=== PATIENT | male | born 1965 | race Caucasian/White ===

== ENCOUNTER 2020-06-07 10:58 | Emergency (ER) | payer BC, SELFPAY ==
[2020-06-07 11:00] VITALS: BP 118/81; PULSE 87; RESP 17; TEMP 36.9; O2SAT 94; BMI 22.6
--- NOTE | 2020-06-07 11:01 | NURSING ---
NO OLD EKGS
[2020-06-07 11:11] VITALS: O2SAT 95
--- NOTE | 2020-06-07 11:21 | ED.RN ---
WHILE IV BEING PLACED THE PATIENT BECAME DIAPHORETIC, PULSE DROPPED TO 39, AND BP DOWN TO 66/50. PATIENT PLACED IN TRENDELENBURG POSITION AND COOL CLOTH GIVEN. HR NOW 73 AND BP 108/86. WILL CONTINUE TO MONITOR. NOTIFIED.
--- NOTE | 2020-06-07 11:35 | EKG12_ITS ---
Test Reason : PALPS REPEAT Blood Pressure : / mmHG Vent. Rate : 072 BPM Atrial Rate : 072 BPM P-R Int : 132 ms QRS Dur : 082 ms QT Int : 364 ms P-R-T Axes : 056 047 058 degrees QTc Int : 398 ms Normal sinus rhythm Normal ECG Confirmed by DELANEY DAVIS, MARCELINO ([id number]), video editor HALIE CANO ([id number]) on 06/09/2020 2:36:04 PM Referred By: HASEEB Confirmed By:NIMESH BALTAZAR MD
--- NOTE | 2020-06-07 11:35 | RAD_ITS ---
STUDY: X-RAY CHEST REASON FOR EXAM: Male, 54 years old. cp TECHNIQUE: Single AP portable view of the chest. COMPARISON: None. FINDINGS: The lungs are clear and expanded. There is no demonstrated pleural abnormality. Normal size heart. Normal mediastinum and essence. Normal visualized pulmonary arteries. Normal visualized aortic arch and descending thoracic aorta. Normal visualized thoracic spine. Normal visualized ribs, clavicles, and shoulders. There is no demonstrated abnormality of the visualized soft tissue structures of the upper abdomen. RAD/Chest 1 View (Portable) IMPRESSION: Normal x-ray examination of the chest. Electronically Signed: Janak Wilder MD at 12:40 EDT Tel , Service support ,
--- NOTE | 2020-06-07 11:36 | EKG12_ITS ---
Test Reason : PALP Blood Pressure : / mmHG Vent. Rate : 044 BPM Atrial Rate : 035 BPM P-R Int : 000 ms QRS Dur : 076 ms QT Int : 406 ms P-R-T Axes : 000 056 050 degrees QTc Int : 347 ms Marked sinus bradycardia with A-V dissociation and Junctional bradycardia with Sinus/atrial capture Abnormal ECG Confirmed by DELANEY DAVIS, MARCELINO ([id number]), acquisition editor HALIE CANO ([id number]) on 06/09/2020 2:36:25 PM Referred By: MATTY Confirmed By:NIMESH BALTAZAR MD
[2020-06-07] MEDS: 0.9% Normal Saline 1,000 ML 1000 ML IV (11:52)
[2020-06-07 12:29] LABS: Absolute Lymphocyte Count 1.97 X10^3/uL (0.83-4.51); Absolute Neutrophil Count 5.4 X10^3/uL (2.0-7.7); Basophil# 0.06 X10^3/uL; Basophil% 0.7 % (0-1); Eosinophil# 0.04 X10^3/uL; Eosinophils% 0.5 % (0-5); Hemoglobin 16.6 g/dL (13.0-16.5); Lymphocyte # 1.97 X10^3/ul (4.0); Lymphocyte % 24.3 % (19-41); Mean Corp Hgb Conc 34.6 g/dL (32-36); Mean Corpuscular Hgb 30.9 pg (27.0-32.0); Mean Corpuscular Volume 89.4 fL (80-94); Mean Platelet Vol. 9.5 fl (6.2-12.0); Monocyte# 0.55 X10^3/uL; Monocyte% 6.8 % (0-10); NRBC Flagged by Analyzer 0 % (0-5); Neutrophil # 5.44 X10^3/uL (2.7-7.7); Neutrophil % 67.2 % (47-70); Platelet Count 241 K/mm3 (150-450); RBC Distribution Width CV 12.9 % (11.6-14.6); RBC Distribution Width SD 41.8 fl (35.1-43.9); Red Blood Count 5.37 M/mm3 (4.6-6.2); White Blood Count 8.1 K/mm3 (4.4-11.0)
[2020-06-07 12:41] LABS: D-Dimer Quantitative (DVT/PE) 0.32 FEU/ug/m (0.27-0.49)
[2020-06-07 12:57] LABS: Anion Gap 6 (5-15); BUN 16 mg/dL (7-18); Calcium,Total 9.4 mg/dL (8.5-10.1); Chloride 103 mmol/L (98-107); Creatinine, Serum 1.14 mg/dL (0.70-1.30); EST Glomerular Filtration Rate 71 mL/min (>60); Est Glom Filt Rate - Afr Amer 86 mL/min (>60); Glucose 97 mg/dL (74-106); Potassium 3.9 mmol/L (3.5-5.1); Sodium Level 137 mmol/L (136-145)
[2020-06-07 13:44] VITALS: BP 126/88; PULSE 85; RESP 18; O2SAT 96
--- NOTE | 2020-06-07 13:58 | ED.DCSUM_ITS ---
History of Present Illness Chief Complaint: Palpitations Detail of Chief Complaint: Weird feeling in chest Informant: Patient Onset: Yesterday Current Severity: Mild Maximum Severity: Mild Narrative: Patient presents with a weird feeling in his chest and states he overall just does not feel quite right. He has a hard time explaining what he means with this. He denies actual chest pain or palpitations. He has not felt lightheaded or dizzy. He does not feel as if he is on a pass out. He denies any significant cardiac history. Past Medical History - Allergies and Home Meds Allergies/Adverse Reactions: Allergies Penicillins Allergy (Verified 06/07/20 10:59) FROM [facility] Primary Care Physician: Care Physician,No Primary [Primary Care Provider] - Past Medical History: None Smoking Status: Current every day smoker Review of Systems General: Denies: Chills, Fever Eyes: Denies: Visual changes - bilaterally ENT: Denies: Bilateral ear pain Cardiovascular: Denies: Chest pain Respiratory: Denies: Dyspnea, Cough Gastrointestinal: Denies: Abdominal pain, Nausea, Vomiting, Diarrhea Musculoskeletal: Denies: Swelling, Extremity Pain Skin: Denies: Rash Neurological: Denies: Headache Hematologic: Denies: Easy bruising, Easy bleeding Allergy: Denies: Uticaria Physical Exam Vital Signs/Narrative: Vital Signs Temp Pulse Resp BP Pulse Ox 06/07/20 13:44 85 18 126/88 H 96 06/07/20 11:11 95 06/07/20 11:00 98.4 F 87 17 118/81 H 94 Inital Vital Signs reviewed: Yes General: Well nourished, Well developed Head: Normocephalic Neck: Supple Cardiovascular: Regular rate, Regular rhythm Respiratory: No distress, CTA bilaterally Abdomen: Soft, Nontender Extremities: Nontender Skin: Normal color, No rash Neurological: Alert, Oriented x3 Psychological: Normal affect Diagnostic/Tx/Re-eval Chest X-Ray - ED: 1 View, Read by ED Physician, Normal, Heart, Lungs, Mediastinum Impressions Chest X-Ray 06/07/20 11:35 IMPRESSION: Normal x-ray examination of the chest. Electronically Signed: Janak Wilder MD at 12:40 EDT Tel , Service support , 06/07/20 11:35 Chest 1 View (Portable) [RAD] Stat Laboratory Results 06/07/20 06/07/20 06/07/20 11:22 11:22 11:22 WBC 8.1 RBC 5.37 Hgb 16.6 H Hct 48.0 MCV 89.4 MCH 30.9 MCHC 34.6 RDW Std Deviation 41.8 RDW Coeff of [place] 12.9 Plt Count 241 MPV 9.5 Immature Gran % (Auto) 0.500 Neut % (Auto) 67.2 Lymph % (Auto) 24.3 [place] % (Auto) 6.8 Eos % (Auto) 0.5 Baso % (Auto) 0.7 Absolute Neuts (auto) 5.4 Absolute Lymphs (auto) 1.97 Nucleated RBC % 0 D-Dimer Quant (PE/DVT) 0.32 Sodium 137 Potassium 3.9 Chloride 103 Carbon Dioxide 28.0 Anion Gap 6 BUN 16 Creatinine 1.14 Estim Creat Clear Calc 76.00 Est GFR (MDRD) Af Amer 86 Est GFR (MDRD) Non-Af 71 BUN/Creatinine Ratio 14.0 Glucose 97 Calcium 9.4 Troponin I < 0.015 - EKG Initial EKG Interpretation: - - Junctional rhythm versus A-V dissociation with ventricular rate of 44. No ST change. Follow-up EKG Interpretation: Sinus Rhythm - Sinus at 72 with no acute ischemia. - Medical Decision Making I was initially handed the patient's first EKG. I immediately went to the room to evaluate the patient. At the time of my evaluation his heart rate was in the 70s. I came to find out that the patient had his initial EKG obtained while they were starting an IV the patient had a significant vagal response. Nursing staff states his heart rate dropped into the upper 30s and his blood pressure dropped into the 60s systolic. Patient was laid in Trendelenburg position and he recovered on his own. Patient's vital signs been stable since this initial incident. Blood work is un remarkable. I did send the EKGs to cardiology and spoke with him on the phone. In light of the fact that this abnormal EKG was obtained with a significant vagal response I do not feel further inpatient work-up is needed. Patient is advised to follow-up with a primary care physician which will he will be referred to. She was given return instructions. ED Disposition - Plan for ED Patient: Disposition: Home or Assisted Living Diagnosis: Palpitations Instructions: ED Palpitations Referrals: Etta Myers MD [STAFF PHYSICIAN] - 1-2 Weeks
[2020-06-07 14:21] VITALS: BP 128/86; PULSE 83; RESP 19; O2SAT 95
== END 2020-06-07 14:26 | disposition home or self-care (01) ==
PROVIDERS: Emergency Provider Emergency Medicine
DX: R00.2 Palpitations (principal); F17.200 Nicotine dependence, unspecified, uncomplicated; Z88.0 Allergy status to penicillin
CPT/HCPCS: 71045; 80048; 84484; 85025; 85379; 93005; 96360; 99284; J7030